=== PATIENT | male | born 1950 | race Two or more races ===

== ENCOUNTER → 2020-09-26 | Outpatient (CLI) | payer MEDICARE, BC ==
[~2020-09-26] VITALS: Ht 172.7 cm; Wt 102.1 kg
[~2020-09-26] MED LIST: ASPIRIN EC81 MG ORAL; ATORVASTATIN CA20 MG ORAL; FOLIC ACID1 MG ORAL; VITAMIN B-121000 MCG PO; VITAMIN C500 M1 ORAL
[2020-09-26 11:26] VITALS: BP 141/84
--- NOTE | 2020-09-27 16:44 | Consultation ---
DATE OF CONSULTATION: 09/26/2020 GASTROENTEROLOGY CONSULTATION CONSULTING PHYSICIAN: Gómez Geronimo MD. REFERRING PHYSICIAN: Chaka Horvath MD. CHIEF COMPLAINT: Referral for screening colonoscopy and also for evaluation of chronic GERD. PAST MEDICAL HISTORY: 1. History of GERD. 2. Hypercholesterolemia. PAST SURGICAL HISTORY: None. MEDICATIONS: Aspirin, vitamin D, vitamin C, folic acid, atorvastatin. FAMILY HISTORY: Noncontributory. SOCIAL HISTORY: The patient denies any tobacco, alcohol, or drug abuse. ALLERGIES: No known allergies. REVIEW OF SYSTEMS: A 10-point review of systems was performed and was negative. PHYSICAL EXAMINATION: VITAL SIGNS: Temperature 97.6, blood pressure 141/88, pulse 89, respirations 20. Weight is 254. Height is 5 feet 11 inches. HEENT: Normocephalic and atraumatic. Sclerae are anicteric. NECK: Supple. No evidence of obvious lymphadenopathy. CARDIOVASCULAR: Regular rate and rhythm. Plus S1, S2. LUNGS: Clear to auscultation bilaterally. ABDOMEN: Positive bowel sounds. Soft and nontender. No rebound. No guarding. No peritoneal sign. EXTREMITIES: No cyanosis, no clubbing, no edema. ASSESSMENT AND PLAN: This is a 70-year-old male referred for screening colonoscopy. The patient also needs an EGD given chronic GERD. The patient was given instruction for colonoscopy. Risks and benefits of procedure were explained to him. We will schedule him some time this week or next week. Gómez Geronimo M.D. DR: GABBIE JOB#: [id number] CC:
== END | disposition home or self-care (01) ==
LOC: PAN 11:06
DX: K21.9 Gastro-esophageal reflux disease without esophagitis (principal); E78.00 Pure hypercholesterolemia, unspecified; Z79.82 Long term (current) use of aspirin; Z79.899 Other long term (current) drug therapy

== ENCOUNTER 2020-10-10 10:48 | Outpatient (CLI) | payer MEDICARE, BC ==
--- NOTE | 2020-10-10 11:10 | General Progress Note ---
Subjective ROS Limited/Unobtainable: Yes Allergies: Coded Allergies: No Known Allergies (Unverified , 09/26/20) Objective General Appearance: alert EENT: normal ENT inspection Neck: supple Cardiovascular: normal rate Respiratory/Chest: decreased breath sounds Abdomen: normal bowel sounds, non tender, soft Extremities: non-tender Assessment/Plan Assessment/Plan: HP gastritis 2 polyps treat for HP repeat colon 5 years RTC 3 months Gómez Geronimo MD Oct 10, 2020 11:10
== END 2020-10-10 12:48 | disposition home or self-care (01) ==
LOC: PAN 10:48
DX: K29.70 Gastritis, unspecified, without bleeding (principal); B96.81 Helicobacter pylori [H. pylori] as the cause of diseases classified elsewhere; K63.5 Polyp of colon
CPT/HCPCS: 99212